=== PATIENT | male | born 1940 | race Caucasian/White ===

== ENCOUNTER 2018-06-17 18:10 | Emergency (ER) | payer MEDICARE, OTHER ==
[~2018-06-17] VITALS: Ht 188 cm; Wt 87.1 kg
[~2018-06-17 18:10] MED LIST: KEFLEX250 MG PO; LISINOPRIL; ZOCOR
[2018-06-17] MEDS ORDERED: PLAVIX 75 MG TA75 M1 PO (18:24)
[2018-06-17] MEDS ORDERED: ZETIA10 MG PO (18:24)
[2018-06-17] MEDS ORDERED: KEFLEX500 M1 PO (19:39)
[2018-06-17] MEDS ORDERED: NORCO 5-325 TA1 EACH PO (19:39)
[2018-06-17 20:24] VITALS: BP 119/70
== END 2018-06-17 20:26 | disposition home or self-care (01) ==
LOC: M.ERS 18:10
DX: S61.412A Laceration without foreign body of left hand, initial encounter (principal); I10 Essential (primary) hypertension; E78.5 Hyperlipidemia, unspecified; W26.8XXA Contact with other sharp object(s), not elsewhere classified, initial encounter; Y93.89 Activity, other specified; Y92.89 Other specified places as the place of occurrence of the external cause; Y99.8 Other external cause status